=== PATIENT | female | born 1995 | race Caucasian/White ===

== ENCOUNTER 2023-10-19 10:32 | Outpatient (CLI) | payer OTHER ==
[2023-10-19 11:38] LABS: Appearance,Urine Cloudy (Clear); Bacteria,Urine Few /hpf; Bilirubin,Urine Negative (Negative); Blood,Urine Negative (Negative); Color,Urine Colorless; Glucose,Urine (UA) Negative (Negative); Ketones,Urine Negative (Negative); Leukocyte Esterase,Urine Large (Negative); Nitrite,Urine Negative (Negative); Protein,Urine Negative (Negative); RBC,Urine 2 /hpf (0-5); Specific Gravity,Urine 1.003 (1.001-1.035); Squamous Epithelial Cell,Urine 11 /hpf (0-4); Urobilinogen,Urine <2.0 mg/dL (<2.0); WBC,Urine 31 /hpf (0-5)
[2023-10-19 11:52] LABS: Protein/Creatinine Ratio,Urine 0.882
[2023-10-19 12:31] LABS: ALT 20 U/L (4-34); AST 26 U/L (14-36); African American GFR (CKD) >90 (>60 ml/min/1.73 sqM); Blood Urea Nitrogen 7 mg/dL (7-17); LDH 167 U/L (120-246); Non-African American GFR(CKD) >90 (>60 ml/min/1.73 sqM); Uric Acid 2.6 mg/dL (3.7-7.4)
[2023-10-19 12:36] LABS: Basophils % (A) 0 %; Eosinophils # (A) 0.1 k/uL (0-0.7); Eosinophils % (A) 1 %; HGB 10.2 gm/dL (11.4-16.0); Lymphocytes % (A) 12 %; Mean Platelet Volume 8.4; Monocytes # (A) 0.4 k/uL (0-1.0); Monocytes % (A) 5 %; Neutrophils # (A) 6.4 k/uL (1.3-7.7); Neutrophils % (A) 80 %; Platelet Count 248 k/uL (150-450); RBC 3.53 m/uL (3.80-5.40); RDW 12.9 % (11.5-15.5); WBC 7.9 k/uL (3.8-10.6)
[2023-10-19 13:02] VITALS: BP 132/89; PULSE 90; RESP 16; TEMP 97.7
== END 2023-10-19 12:52 | disposition home or self-care (01) ==
LOC: FBPOP 10:32
PROVIDERS: ATTEND Obstetrics & Gynecology
DX: O13.3 Gestational [pregnancy-induced] hypertension without significant proteinuria, third trimester (principal); Z3A.37 37 weeks gestation of pregnancy
CPT/HCPCS: 59025; 81001; 82565; 82570; 83615; 84156; 84450; 84460; 84520; 84550; 85025; 87086

== ENCOUNTER 2023-11-05 11:36 | Inpatient (IN) | payer OTHER ==
[2023-11-05] MEDS ORDERED: TERBUTALINE 1 MG/ML VIAL SQ PRN (12:03)
[2023-11-05] MEDS ORDERED: miSOPROStoL 200 MCG TAB PO PRN (12:03)
[2023-11-05] MEDS ORDERED: TRANEXAMIC 1,000 MG/100ML-NACL 1,000 MG in EMPTY BAG 1 BAG IV PRN (12:03)
[2023-11-05] MEDS ORDERED: CARBOPROST TROMETHAMINE 250 MCG/ML 1 ML AMP IM PRN (12:03)
[2023-11-05] MEDS ORDERED: METHYLERGONOVINE 0.2 MG/ML 1 ML AMP IM PRN (12:03)
[2023-11-05] MEDS ORDERED: OXYTOCIN 10 UNIT/ML 1 ML VIAL IM PRN (12:03)
[2023-11-05] MEDS: LACTATED RINGERS 1,000 ML IV SCH (12:28)
[2023-11-05] MEDS: PENICILLIN G POTASSIUM 5,000,000 UNIT in DEXTROSE 5% IN WATER 100 ML IVPB STA (12:34)
[2023-11-05] MEDS: OXYTOCIN 30 UNITS/500 ML NS 30 UNIT in SALINE 1 500ML.BAG IV SCH (12:35)
[2023-11-05 13:00] LABS: Basophils % (A) 0 %; Eosinophils # (A) 0.2 k/uL (0-0.7); Eosinophils % (A) 2 %; HCT 33.4 % (34.0-46.0); HGB 10.7 gm/dL (11.4-16.0); Hypochromasia Slight; Lymphocytes # (A) 1.4 k/uL (1.0-4.8); Lymphocytes % (A) 13 %; MCHC 31.9 g/dL (31.0-37.0); MCV 87.8 fL (80.0-100.0); Monocytes # (A) 0.4 k/uL (0-1.0); Monocytes % (A) 4 %; Neutrophils # (A) 8.4 k/uL (1.3-7.7); Neutrophils % (A) 80 %; Platelet Count 240 k/uL (150-450); RBC 3.81 m/uL (3.80-5.40); RDW 13.3 % (11.5-15.5); WBC 10.5 k/uL (3.8-10.6)
[2023-11-05] MEDS ORDERED: fentaNYL (PF) 50 MCG/ML 5 ML AMP ONE (15:16)
[2023-11-05] MEDS ORDERED: ROPIVACAINE 5 MG/ML 30 ML VIAL ONE (15:16)
[2023-11-05] MEDS ORDERED: SODIUM CHLORIDE 0.9% 250 ML BAG ONE (15:16)
--- NOTE | 2023-11-05 15:34 | P.HPOB ---
History of Present Illness H&P Date: 11/05/23 Chief Complaint: Leaking of fluid Ms. Ceron is a 28 year old at 39 weeks and 4 days with EDC of 11/08/2023 by LMP consistent with a 9 week US who presents with grossly ruptured membranes at 0600 with clear amniotic fluid. At the time of admission she is hilario irregularly. She was checked in the office 3 days ago and was 1/60/-3. On admission today, she is 1.5/60/-3. Her has been complicated by white coat hypertension with some elevated readings in the office with negative PIH work-up and normal serial blood pressures when sent to L&D triage. The fetus is estimated in the 70%ile for growth based on a 33 week ultrasound. work-up: blood type A positive, antibody negative, rubella immune, VDRL non-reactive, HBsAg negative, HIV negative, HCV Ab non-reactive, gonorrhea negative, chlamydia negative, 1 hour GTT wnl, GBS positive. Past Medical History Past Medical History: No Reported History History of Any Multi-Drug Resistant Organisms: None Reported Past Surgical History: No Surgical Hx Reported Past Anesthesia/Blood Transfusion Reactions: No Reported Reaction Past Psychological History: No Psychological Hx Reported Smoking Status: Never smoker Past Alcohol Use History: None Reported Past Drug Use History: None Reported - Past Family History Mother Family Medical History: No Reported History Medications and Allergies Home Medications Medication Instructions Recorded Confirmed Type Vit No.179/Iron/Folic 1 tab PO DAILY 10/19/23 11/05/23 History [ Tablet] RX: Aspirin 81 mg PO DAILY 10/19/23 11/05/23 History Allergies Allergy/AdvReac Type Severity Reaction Status Date / Time No Known Allergies Allergy Verified 11/05/23 11:46 Exam Vital Signs Temp Pulse Resp BP Pulse Ox 11/05/23 12:07 98.6 F 90 18 127/79 99 Intake and Output 11/05/23 11/05/23 11/05/23 06:59 14:59 22:59 Other: # Voids 1 Weight 95.254 kg Focused physical exam is performed. This is a healthy-appearing in no apparent distress. Breathing is non-labored. Abdomen is gravid and non-tender. Cervical exam per the OB RN is 1.5/60/-3. Extremities are non-tender and non- edematous. heart tones are Category I and tocometer is graphing contractions every 1-2 minutes. Results Result Diagrams: 11/05/23 12:33 Abnormal Lab Results - Last 24 Hours (Table) 11/05/23 Range/Units 12:33 Hgb 10.7 L (11.4-16.0) gm/dL Hct 33.4 L (34.0-46.0) % Neutrophils # 8.4 H (1.3-7.7) k/uL Assessment and Plan Assessment: 28 year old at 39 weeks and 4 days with SROM at 600 Plan: Admit, pitocin per protocol, clear liquid diet, epidural prn, GBS ppx with PCN, continuous EFM and tocometer, close monitoring of patient.
--- NOTE | 2023-11-05 16:04 | P.MSEPDOC ---
Presenting Problems - Arrival Data Date of Arrival on Unit: 11/05/23 Time of Arrival on Unit: 11:40 Mode of Transport: Ambulatory - Complaint OB-Reason for Admission/Chief Complaint: Rule Out SROM Comment: SROM at 0630 today, clear fluid Medical History - Information : 1 Para: 0 Term: 0 : 0 Abortions: Spontaneous or Elective: 0 Number of Living Children: 0 - Gestational Age Gestational Age by LOVE (wks/days): 39 Weeks and 4 Days Review of Systems - Review of Systems Constitutional: No problems Breast: No problems ENT: No problems Cardiovascular: No problems Respiratory: No problems Gastrointestinal: No problems Genitourinary: No problems Musculoskeletal: No problems Neurological: No problems Skin: No problems Vital Signs - Temperature Temperature: 98.6 F Temperature Source: Temporal Artery Scan - Pulse Right Sitting Brachial Pulse Rate: 90 Pulse Assessment Method: Automatic Cuff - Respirations Respiratory Rate: 18 Oxygen Delivery Method: Room Air O2 Sat by Pulse Oximetry: 99 - Blood Pressure Right Arm Sitting Blood Pressure: 127/79 Blood Pressure Mean: 95 Blood Pressure Source: Automatic Cuff Medical Screen Scoring - Cervical Exam Dilation (cm): 1.5 Effacement (%): 70 Station: -2 Membranes: Ruptured - Uterine Contractions Frequency From (mins): 6 Frequency To (mins): 8 Duration From (seconds): 40 Duration To (seconds): 60 Intensity: Mild Resting: Soft to palpation - Assessment - Baby A Baseline FHR: 135 Heart Rate - NICHD Category: Category I (Normal) NST: Reactive Physician Notification - Physician Notified Physician Notified Date: 11/05/23 Physician Notified Time: 12:05 Physician: Kandis Barraza Order Received: Yes - Notification Comment Comment: admit for labor, start pitocin and Pen G for GBS +, call when epidural desired. Maternal Triage Index - Maternal Triage Index Presenting for scheduled procedure w/no complaint: No - Stat/Priority 1 Stat Priority 1: No - Urgent/Priority 2 Urgent Priority 2: No - Prompt/Priority 3 Prompt Priority 3: No - Non-Urgent/Priority 4 Non-Urgent Priority 4: Yes Criteria Met for Priority 4: amnisure positive. Disposition - Disposition OB Disposition: Admit Discharge Date: 11/05/23 Discharge Time: 12:09 I agree with the RN Medical Screening Exam: Yes Physician's MSE Comment: I have neither seen nor examined the patient Case reviewed; plan agreed upon as documented in EMR&OBIX.: Yes Diagnosis: MATERNAL CARE FOR PROBLEM, UNSP, THIRD * DO NOT USE *
[2023-11-05] MEDS: PENICILLIN G POTASSIUM 2,500,000 UNIT in DEXTROSE 5% IN WATER 100 ML IVPB SCH (17:08)
[2023-11-06] MEDS ORDERED: SIMETHICONE 80 MG CHEWABLE PO PRN (06:38)
[2023-11-06] MEDS ORDERED: ZOLPIDEM 5 MG TAB PO PRN (06:38)
[2023-11-06] MEDS ORDERED: diphenhydrAMINE 50 MG CAP PO PRN (06:38)
[2023-11-06] MEDS ORDERED: diphenhydrAMINE 50 MG/ML 1 ML VIAL IVP PRN ×2 (06:38)
[2023-11-06] MEDS ORDERED: LANOLIN CREAM 1 GM TUBE TOPICAL PRN (06:38)
[2023-11-06] MEDS ORDERED: HYDROCORTISONE 2.5% RECTAL CREAM 30 GM TUBE RECTAL PRN (06:38)
[2023-11-06] MEDS ORDERED: diphenhydrAMINE 25 MG CAP PO PRN (06:38)
--- NOTE | 2023-11-06 06:38 | P.PROBDLV ---
Vaginal Delivery Note - . Vaginal Delivery Note: DATE OF SERVICE: 11/06/2023 PROCEDURE: Normal Vaginal Delivery ATTENDING: Dr. Kandis Barraza MD ESTIMATED BLOOD LOSS: 200 mL FINDINGS: VFI, Apgars 8/9. Weight 7 pounds 15.9 ounces (3625 grams) PROCEDURE: Ms. Ceron is a 28 year old at 39 weeks and 5 days presenting to labor and delivery for SROM at 630 on 11/04 revealing clear amniotic fluid. The has been complicated by some white coat hypertension with negative pre-eclampsia work-up. For further details, please review the admitting H&P. Pitocin was titrated per protocol. The patient received epidural anesthesia per her request. The patient was completely dilated at 210 on 11/05. She pushed for just under 4 hours with slow, steady descent of the head. A viable female was delivered at 606. The infant was placed on the maternal abdomen and bulb suctioned. The was noted to be spontaneously crying. Cord was clamped and cut after a 30-second delay. The was handed off to the pediatric team. Placenta was delivered whole with gentle cord traction at 610. Oxytocin was started to facilitate uterine tone. Uterine fundus was found to be firm and below the umbilicus upon fundal massage. Thorough examination of the cervix, vagina, periurethral area, and perineum revealed a second degree perineal laceration. This area was infiltrated with lidoaine and repaired with 2-0 and 3-0 Vicryl in the usual fashion. The patient is stable and allowed to begin the bonding process.
[2023-11-06] MEDS: BENZOCAINE/MENTHOL SPRAY 1 GM/SPRAY AEROSOL TOPICAL PRN (07:00)
[2023-11-06] MEDS: LIDOCAINE 0.5% (PF) 5 MG/ML (50 ML SDV) SQ PRN (07:00)
[2023-11-06] MEDS: IBUPROFEN 600 MG TAB PO PRN (07:11)
[2023-11-06] MEDS: SENNOSIDES-DOCUSATE SODIUM 1 EACH TAB PO SCH (08:35)
[2023-11-06] MEDS: ACETAMINOPHEN TAB 325 MG TAB PO PRN (09:06)
--- NOTE | 2023-11-07 09:09 | P.PNOBGVD ---
Subjective - Subjective Principal diagnosis: s/p vaginal delivery Interval history: The patient is doing well this morning and had no acute events overnight. She has no complaints this morning. She reports minimal lochia, passing flatus, having bowel movement, ambulating, and eating/drinking without nausea or vomiting. However, she has been unable to urinate since delivery. She has been straight catheterized twice and now will be getting a addison catheter this morning. She is her infant without difficulty. She denies chest pain, shortness of breathing, fevers, or chills overnight. She denies pain or swelling in the legs. Patient reports: Reports appetite normal, Reports voiding normally, Reports pain well controlled, Reports ambulating normally : doing well, nursing well Objective - Latest Vital Signs Latest vital signs: Vital Signs Temp Pulse Resp BP 11/07/23 04:00 98.6 F 81 18 130/73 11/07/23 00:00 97.6 F 72 18 130/65 11/06/23 20:00 97.9 F 85 18 126/73 11/06/23 16:00 98.0 F 65 16 125/77 11/06/23 12:00 98.0 F 88 18 128/68 11/06/23 09:11 98.0 F 67 18 101/51 Intake and Output 11/06/23 11/07/23 11/07/23 22:59 06:59 14:59 Intake Total 1500 Output Total 600 Balance 900 Intake: Oral 1500 Output: Urine 600 Straight 600 - Exam Extremities: Present: normal Abdomen: Present: normal appearance, soft Uterus: Present: normal, firm Assessment and Plan Assessment: 28 year old now PPD#1 s/p normal vaginal delivery, now complicated by urinary retention Plan: 1. . 2. Urinary retention. Plan for addison catheter x24 hours, voiding trial tomorrow AM. 3. Viable female . At bedside, nursing well. Dispo: Anticipate discharge home tomorrow if able to urinate.
[2023-11-07 09:25] LABS: Basophils % (A) 0 %; Eosinophils # (A) 0.3 k/uL (0-0.7); Eosinophils % (A) 3 %; HCT 29.8 % (34.0-46.0); HGB 9.5 gm/dL (11.4-16.0); Hypochromasia Slight; Lymphocytes # (A) 1.6 k/uL (1.0-4.8); Lymphocytes % (A) 14 %; MCH 28.3 pg (25.0-35.0); MCHC 31.9 g/dL (31.0-37.0); MCV 88.7 fL (80.0-100.0); Mean Platelet Volume 8.9; Monocytes # (A) 0.5 k/uL (0-1.0); Monocytes % (A) 5 %; Neutrophils # (A) 9.1 k/uL (1.3-7.7); Neutrophils % (A) 78 %; Platelet Count 229 k/uL (150-450); RBC 3.36 m/uL (3.80-5.40); RDW 13.7 % (11.5-15.5); WBC 11.7 k/uL (3.8-10.6)
[2023-11-07 09:44] VITALS: RESP 16
[2023-11-09 08:30] VITALS: BP 121/72; PULSE 65; TEMP 97.8
--- NOTE | 2023-11-09 08:35 | P.PNOBGVD ---
Subjective - Subjective Principal diagnosis: s/p vaginal delivery Interval history: The patient is doing well this morning and had no acute events overnight. She has no complaints this morning. She reports minimal lochia, passing flatus, ambulating, and eating/drinking without nausea or vomiting. The patient has had urinary retention and inability to void despite several attempts throughout her course including immediately after delivery, 24 hours , and 48 hours . She is breast feeding her without difficulty. She denies chest pain, shortness of breathing, fevers, or chills overnight. She denies pain or swelling in the legs. Patient reports: Reports appetite normal, Reports pain well controlled, Reports ambulating normally [place]: doing well, nursing well Objective - Latest Vital Signs Latest vital signs: Vital Signs Temp Pulse Resp BP Pulse Ox 11/09/23 08:00 97.8 F 65 16 121/72 11/09/23 00:00 98.1 F 89 16 111/65 99 11/08/23 16:30 98.1 F 81 16 124/73 99 Intake and Output 11/08/23 11/09/23 11/09/23 22:59 06:59 14:59 Output Total 1100 1050 Balance -1100 -1050 Output: Urine 1100 1050 Straight 850 300 Other: Voiding Method Indwelling Catheter - Exam Extremities: Present: normal Abdomen: Present: normal appearance, soft Uterus: Present: normal, firm Assessment and Plan Assessment: 28 year old now PPD#3 s/p normal vaginal delivery, now complicated by urinary retention Plan: 1. . 2. Urinary retention. Has addison in place at this time. Failed voiding trial yesterday AM at 48 hours . c/Urology pending. 3. Viable female infant. At bedside, nursing well. Dispo: Anticipate discharge home today, possibly with addison in place depending on urology recs.
--- NOTE | 2023-11-09 11:01 | P.GSCN ---
History of Present Illness Consult date: 11/09/23 Reason for Consult: Urinary retention Requesting physician: Kandis Barraza History of present illness: The patient is a 28-year-old woman, , who delivered a baby via uncomplicated vaginal delivery on November 06, 2023. She sustained a grade 2 perineal laceration which was repaired. She experienced difficulty voiding following delivery, requiring straight catheterization. She states that 1 of these catheterization volumes was 2100 cc. A Harmon catheter was placed yesterday evening after being straight cathed multiple times. The patient states that she did void frequently toward the end of her , as expected. She was treated for a UTI 2 weeks ago. However, prior to , she denies any history of voiding dysfunction and reports only having had 1 UTI in the remote past. Review of Systems - Genitourinary Genitourinary: Reports as per HPI Past Medical History Past Medical History: No Reported History History of Any Multi-Drug Resistant Organisms: None Reported Past Surgical History: No Surgical Hx Reported Past Anesthesia/Blood Transfusion Reactions: No Reported Reaction Past Psychological History: No Psychological Hx Reported Smoking Status: Never smoker Past Alcohol Use History: None Reported Past Drug Use History: None Reported - Past Family History Mother Family Medical History: No Reported History Medications and Allergies Home Medications Medication Instructions Recorded Confirmed Type Aspirin 81 mg PO DAILY 10/19/23 11/05/23 History Vit No.179/Iron/Folic 1 tab PO DAILY 10/19/23 11/05/23 History [ Tablet] Allergies Allergy/AdvReac Type Severity Reaction Status Date / Time No Known Allergies Allergy Verified 11/05/23 11:46 Surgical - Exam Vital Signs Temp Pulse Resp BP Pulse Ox 98.6 F 90 18 127/79 99 11/05/23 12:07 11/05/23 12:07 11/05/23 12:07 11/05/23 12:07 11/05/23 12:07 - General well developed, well nourished, no distress - Respiratory normal respiratory effort - Psychiatric oriented to time, oriented to person, oriented to place, speech is normal, memory intact Results - Labs 11/07/23 08:41 Assessment and Plan (1) Urinary retention Current Visit: Yes Status: Acute Code(s): R33.9 - RETENTION OF URINE, UNSPECIFIED SNOMED Code(s): 384409512 Plan: I explained to the patient that perineal pain and edema can result in difficulty voiding. I have recommended that she be discharged home with the Harmon catheter. She was instructed to remove the catheter early in the morning November 12, and she will be seen in our office late that afternoon to assess bladder emptying. Please notify me if I can be of any further assistance during this hospitalization. Time with Patient: Greater than 30
[2023-11-09] MEDS ORDERED: FERROUS SULFATE 325 MG TAB PO SCH (12:30)
--- NOTE | 2023-11-09 13:18 | P.DS ---
Providers Date of admission: 11/05/23 12:04 Expected date of discharge: 11/09/23 Attending physician: Kandis Barraza MD Consults: 11/08/23 15:41 Consult Physician Urgent Consulting Provider: Lenny Salgado Consult Reason/Comments: urinary retention Do you want consulting provider notified?: Yes Primary care physician: Kandis Barraza MD Hospital Course: Ms. Ceron is a 28 year old now PPD#3 s/p normal vaginal delivery. Her course has been complicated by urinary retention. First, she was unable to void 6-8 hours after delivery and was straight catheterized for 2100 mL. She was again straight catheterized 6-8 hours later for 1800 mL after being unable to void. At that time, a addison was placed for 24 hours and then removed. Again, the patient was unable to void after 6-8 hours and the addison was replaced. This morning the patient was seen by Urology, who recommend going home with they addison. She will then remove the addison on Monday and go in for an appointment at the urology office later that day. Otherwise, her course has gone well. She is eating and drinking, ambulating normally, passing flatus and has had bowel movement. Lochia is light. She has a viable female infant that she is breast-feeding without difficulty. She denies fevers, chills, chest pain, shortness of breath, pain/swelling in the legs. res trictions are reviewed with the patient including pelvic rest for 6 weeks. She is advised to call the office for fevers, chills, heavy bleeding, foul-smelling discharge, severe pain. She plans to use Motrin and Tylenol OTC prn pain. She will follow up in the office in 6 weeks for appt. Assessment: 28 year old now PPD#3 s/p normal vaginal delivery, course complicated by urinary retention Patient Condition at Discharge: Good Plan - Discharge Summary New Discharge Prescriptions: No Action Vit No.179/Iron/Folic [ Tablet] 1 tab PO DAILY RX: Aspirin 81 mg PO DAILY Discharge Medication List Vit No.179/Iron/Folic [ Tablet] 1 tab PO DAILY 10/19/23 [History] RX: Aspirin 81 mg PO DAILY 10/19/23 [History] Follow up Appointment(s)/Referral(s): Kandis Barraza MD [Primary Care Provider] - 12/18/23 9:30 am Activity/Diet/Wound Care/Special Instructions: Instructions 1. Do not begin any exercise program for 3 weeks. 2. Do not resume sexual relations for 6 weeks or longer if uncomfortable. 3. You may take tub baths or showers at any time. 4. You may use tampons if desired after 6 weeks. 5. Keep any areas repaired with stitches clean and dry. 6. If you are not nursing, wear a good fitting, supportive bra during the day and limit fluid intake for at least 1 week to prevent breast engorgement. 7. Call the office, , within the next week to make appointment for your 6 week checkup if it has not already been made. 8. Report any of the following occurrences to the doctor promptly: a. Heavy, excessive bleeding b. Chills, fever c. Burning or frequency of urination d. Pain or redness and breasts if nursing e. Increasing pain or swelling of vulva (stitches). In addition to the above instructions, the following additional should be followed: 1. No heavy lifting or straining (exercising) until after 6 week checkup. 2. Keep abdominal incision clean and dry: You may wear a dressing if more comfortable. 3. Make office appointment for 2 weeks after delivery date. Discharge Disposition: HOME SELF-CARE
== END 2023-11-09 14:30 | disposition home or self-care (01) | DRG 560 ==
LOC: FBPOP 11:36 → 4FBP 12:04
PROVIDERS: ADMIT Obstetrics & Gynecology; ATTEND Obstetrics & Gynecology
PROC: 0KQM0ZZ Repair Perineum Muscle, Open Approach (ICD-10-PCS; principal; 2023-11-06)
PROC: 10E0XZZ Delivery of Products of Conception, External Approach (ICD-10-PCS; principal; 2023-11-06)
DX: O70.1 Second degree perineal laceration during delivery (principal); Z37.0 Single live birth; O90.89 Other complications of the puerperium, not elsewhere classified; R33.8 Other retention of urine; Z28.310 Unvaccinated for COVID-19; Z3A.39 39 weeks gestation of pregnancy; Z79.82 Long term (current) use of aspirin; Z79.899 Other long term (current) drug therapy
CPT/HCPCS: 59025; 84112; 85025; 86850; 86900; 86901; 99213